=== PATIENT | female | born 2000 | race Caucasian/White ===

== ENCOUNTER 2019-02-01 15:06 | Emergency (ER) | payer BC ==
[~2019-02-01] VITALS: Ht 180.3 cm; Wt 71.7 kg
[2019-02-01 15:10] VITALS: BP 112/66
--- NOTE | 2019-02-01 15:13 | NUR ---
PT AMBULATED TO BED 2.
--- NOTE | 2019-02-01 15:17 | NUR ---
18 Y/O F C/O PAIN 5/10 IN HER LEFT PINKY FINGER. PATIENT STATES SHE INJURED HER FINGER PLAYING SOCCER YESTERDAY. PATIENT HAS NOT TAKEN ANY MEDICATION FOR PAIN. SHE WENT TO URGENT CARE TODAY, THEY DID NOT HAVE X-RAY AVAILABLE TO HER. LEFT PINKY FINGER IS SWOLLEN, COLOR WNL, LIMITED ROM WITH PAIN, NUMBNESS, TINGLING. HX: NKA, VACCINES CURRENT, NO PAST MEDICAL HISTORY
--- NOTE | 2019-02-01 15:45 | NUR ---
ICE PACK APPLIED TO LEFT PINKY
--- NOTE | 2019-02-01 16:20 | NUR ---
X-RAY AT BEDSIDE
--- NOTE | 2019-02-01 16:52 | NUR ---
ER WAS AT BEDSIDE, BEVERLY MALCOLM APPLIED SPLINT TO LEFT 4TH AND 5TH DIGIT.
--- NOTE | 2019-02-01 16:56 | NUR ---
Patient discharged with v/s stable. Written and verbal after care instructions given and explained. Patient verbalized understanding. Ambulatory with steady gait. All questions addressed prior to discharge. Advised to follow up with PMD.
[2019-02-01 16:57] VITALS: BP 111/75
== END 2019-02-01 16:56 | disposition home or self-care (01) ==
LOC: MED 15:06
DX: S63.617A Unspecified sprain of left little finger, initial encounter (principal); X58.XXXA Exposure to other specified factors, initial encounter; Y92.322 Soccer field as the place of occurrence of the external cause; Y93.66 Activity, soccer; Y99.8 Other external cause status
CPT/HCPCS: 73130; 99283; Q0092